=== PATIENT | female | born 1965 | race Two or more races ===

== ENCOUNTER 2017-11-06 22:04 | Emergency (ER) | payer MEDICAID ==
[~2017-11-06] VITALS: Ht 167.6 cm; Wt 75.5 kg
[2017-11-06 22:27] VITALS: BP 168/82
== END 2017-11-07 00:08 | disposition home or self-care (01) ==
LOC: ER 22:04
DX: J40 Bronchitis, not specified as acute or chronic (principal)
CPT/HCPCS: 71046